=== PATIENT | male | born 1985 | race Caucasian/White ===

== ENCOUNTER 2018-06-03 20:10 | Emergency (ER) | payer SELFPAY ==
--- NOTE | 2018-06-03 20:21 | ER Report ---
History and Physical Time Seen By MD: 20:20 Hx. of Stated Complaint: Detention clearance. Pt is refusing all treatment and vitals. HPI/ROS CHIEF COMPLAINT: Detention clearance HISTORY OF PRESENT ILLNESS: Patient is a 33-year-old male here for retirement clearance company by police. Patient was reportedly found to be intoxicated and is on his way to retirement however due to his level of intoxication, police brought him to the emergency department for clearance. Patient refused vitals or any treatment. I evaluated the patient and he verbalized that he did not want to be evaluated nor did he wish to have labs or imaging. He denied any pain or trauma. REVIEW OF SYSTEMS: Unable to obtain due to patient's refusal Allergies: Coded Allergies: No Known Drug Allergies (Unverified , 06/03/18) Unable To Obtain Past Medical: Refused Physical Exam Unable to obtain due to patient refusal. Medical Decision Making ED Course/Re-evaluation ED Course Patient is a 33-year-old male, intoxicated, here for retirement clearance accompanied by police. Patient declined any evaluation, treatment, vitals. Patient would not answer most questions so a review of system was unable to be obtained. He did tell me that he was not in pain and that he did not wish to be evaluated. Patient was released to police to proceed to retirement. A formal retirement clearance evaluation was unable to be completed. Patient was visibly intoxicated however was able to verbalize that he was in no pain. Decision to Disposition Date: Jun 03, 2018 Decision to Disposition Time: 20:37 Depart Departure Impression: Primary Impression: Alcohol abuse Condition: Condition Unchanged Disposition: [facility] TO NURSING HOME/CORRECTIONAL F Patient Instructions: Abuse of Alcohol (ED) Additional Instructions: You refused medical evaluation. You may proceed to retirement with police. HAIR JARVIS DO Jun 03, 2018 20:21
== END 2018-06-03 20:37 ==
LOC: ER 20:15
DX: F10.920 Alcohol use, unspecified with intoxication, uncomplicated (principal)
CPT/HCPCS: 99281